=== PATIENT | female | born 1945 | race Caucasian/White ===

== ENCOUNTER → 2017-03-24 | Outpatient (CLI) | payer OTHER ==
--- NOTE | 2017-03-24 13:42 | RAD ---
Examination: Ultrasound limited right breast History: History of new round mass 11:00 position right breast Comparison: Mammogram from 03/17/2017. Findings: There is a small hypoechoic nodule measuring 5.5 mm identified at 11:00 position 6 cm from the nipple could be a small nodule or intramammary lymph node. Impression: Probably benign findings BI-RADS Category 3. Recommend right breast ultrasound in 6 months.
== END | disposition home or self-care (01) ==
LOC: KCIC US 12:46
PROVIDERS: ATTEND Internal Medicine
DX: N63.10 Unspecified lump in the right breast, unspecified quadrant (principal)
CPT/HCPCS: 76641